=== PATIENT | female | born 1975 | race Caucasian/White ===

== ENCOUNTER 2019-04-29 16:54 | Emergency (ER) | payer BC ==
[~2019-04-29] VITALS: Ht 147.3 cm; Wt 59.0 kg
[2019-04-29 16:57] VITALS: BP_SYST 140
--- NOTE | 2019-04-29 17:05 | NUR ---
Patient to ER bed 8 to gown for evaluation. Side rails up. Report given to ROMIE Hanks.
--- NOTE | 2019-04-29 17:07 | NUR ---
Patient brought in by self complaining of intermittent posterior headache last 6-7 hours with nausea. Reports did not sleep last night and under a lot of stress. Also complaining of numbness and tingling to fingertips. History of anxiety and depression. Denies vomiting, diarrhea, or fevers. Pain 4/10. No other complaints/injuries per patient or as noted. Will continue to monitor.
--- NOTE | 2019-04-29 17:10 | NUR ---
ER PA Andersen at bedside examining patient.
[2019-04-29] MEDS ORDERED: KETOROLAC TROMETHAMINE 15 MG VIAL IVP ONE (17:30)
[2019-04-29] MEDS ORDERED: ONDANSETRON HCL 4 MG/2 ML VIAL IVP ONE (17:30)
[2019-04-29] MEDS ORDERED: METOCLOPRAMIDE HCL 10 MG/2 ML VIAL IVP ONE (17:30)
[2019-04-29] MEDS ORDERED: DIPHENHYDRAMINE INJ 50 MG/ML VIAL IVP ONE (17:30)
[2019-04-29] MEDS ORDERED: NACL 0.9% 1,000 ML IV ONE (17:45)
[2019-04-29 18:41] VITALS: BP_SYST 118
--- NOTE | 2019-04-29 18:41 | NUR ---
Patient given written and verbal discharge instructions and verbalizes understanding. ER MD discussed with patient the results and treatment provided. Patient in stable condition. ID arm band removed. IV catheter removed intact and dressing applied, no active bleeding. Rx of Reglan, Ibuprofen, Sumatriptan given. Patient educated on pain management and to follow up with PMD. Pain Scale 0/10 Opportunity for questions provided and answered. Medication side effect fact sheet provided.
== END 2019-04-29 18:41 | disposition home or self-care (01) ==
LOC: SED 16:54
DX: R51 Headache (principal); R03.0 Elevated blood-pressure reading, without diagnosis of hypertension; F32.9 Major depressive disorder, single episode, unspecified; F41.9 Anxiety disorder, unspecified; F12.90 Cannabis use, unspecified, uncomplicated
CPT/HCPCS: 82962; 96374; 96375; 99284; J1200; J1885; J2765; J7030

== ENCOUNTER 2021-08-26 07:08 | Emergency (ER) | payer BC ==
[~2021-08-26] VITALS: Ht 149.9 cm; Wt 56.7 kg
[2021-08-26 07:12] VITALS: BP_SYST 134
--- NOTE | 2021-08-26 07:13 | NUR ---
Patient to ER bed 1 to gown for evaluation. Side rails up. Report given to MARITZA GRUBBS.
--- NOTE | 2021-08-26 07:30 | NUR ---
ER Dr. Santos at bedside examining patient.
--- NOTE | 2021-08-26 07:34 | NUR ---
CXR being done at bedside.
--- NOTE | 2021-08-26 07:36 | NUR ---
Pt here from home reporting L sided chest pressure 5/10, radiating to scapula area. Denies cardiac hx. No SOB noted upon face to face assessment. Minimal PMH besides psychiatric dx reported. VSS on inventory control clerk. Pending labs/imaging.
--- NOTE | 2021-08-26 07:51 | NUR ---
# 20 gauge angiocath placed to right wrist. Use of asceptic technique. Opsite placed over site. Blood return noted. Blood for lab drawn from site. Flushed with 10 cc of normal saline. No evidence of infiltration noted. Patient tolerated well.
[2021-08-26 07:59] LABS: BASOPHILS % (AUTO) 0.4 % (0.0-2.0); EOSINOPHILS # (AUTO) 0.2 K/uL (0.0-0.4); EOSINOPHILS % (AUTO) 2.9 % (0.0-4.0); HEMATOCRIT 34.9 % (36-48); HEMOGLOBIN 11.9 g/dL (12.0-16.0); LYMPHOCYTES # (AUTO) 1.4 K/uL (1.0-5.5); LYMPHOCYTES % (AUTO) 23.5 % (20.5-51.5); MEAN CORPUSCULAR HEMOGLOBIN 30 pg (27-31); MEAN CORPUSCULAR HGB CONC 34 % (32-36); MEAN CORPUSCULAR VOLUME 88 fL (79.0-98.0); MONOCYTES # (AUTO) 0.4 K/uL (0.0-1.0); MONOCYTES % (AUTO) 6.9 % (1.7-9.3); NEUTROPHILS # (AUTO) 3.9 K/uL (1.8-7.7); NEUTROPHILS % (AUTO) 66.3 % (40.0-70.0); PLATELET COUNT (AUTO) 213 K/uL (130-430); RED BLOOD CELL COUNT(AUTO) 3.95 MIL/uL (4.2-6.2); WHITE BLOOD COUNT (AUTO) 5.9 K/uL (4.8-10.8)
[2021-08-26] MEDS ORDERED: ONDANSETRON HCL 4 MG/2 ML VIAL IVP ONE (08:00)
[2021-08-26] MEDS ORDERED: KETOROLAC TROMETHAMINE 30 MG VIAL IVP ONE (08:00)
[2021-08-26 08:16] LABS: ANION GAP 9 (5-15); CALCIUM 8.1 mg/dL (8.4-11.0); CHLORIDE 104 mmol/L (98-107); CREATININE 0.67 mg/dL (0.55-1.30); GLUCOSE 99 mg/dL (70-99); POTASSIUM 3.8 mmol/L (3.5-5.1); SODIUM SERUM 138 mmol/L (136-145); UREA NITROGEN, BLOOD 10 mg/dL (8-21)
[2021-08-26 08:24] LABS: ALANINE AMINOTRANSFERASE 22 U/L (12-78); ALBUMIN 3.6 g/dL (3.4-4.8); ASPARTATE AMINOTRANSFERASE 20 U/L (10-37); TOTAL BILIRUBIN 0.3 mg/dL (0.0-1.0)
[2021-08-26 08:30] LABS: GFR AFRICAN AMERICAN 121 mL/min (>90)
[2021-08-26] MEDS ORDERED: MORPHINE 4 MG INJ. 4 MG/ML VIAL IM ONE (09:45)
[2021-08-26] MEDS ORDERED: OXYCODONE/ACETAMINOPHEN 5-325 TABLET PO ONE (09:45)
[2021-08-26] MEDS ORDERED: ACET325C5 PO (10:08)
[2021-08-26 10:33] VITALS: BP_SYST 134
--- NOTE | 2021-08-26 10:39 | NUR ---
Patient given written and verbal discharge instructions and verbalizes understanding. ER MD discussed with patient the results and treatment provided. Patient in stable condition. ID arm band removed. IV catheter removed intact and dressing applied, no active bleeding. Patient educated on pain management and to follow up with PMD. Pain Scale 2/10. Opportunity for questions provided and answered. Pt AOx4, GCS 15. NAD noted at this time.
== END 2021-08-26 10:39 | disposition home or self-care (01) ==
LOC: SED 07:08
DX: R07.89 Other chest pain (principal); D64.9 Anemia, unspecified; F32.9 Major depressive disorder, single episode, unspecified; F41.9 Anxiety disorder, unspecified; F17.290 Nicotine dependence, other tobacco product, uncomplicated; Z88.8 Allergy status to other drugs, medicaments and biological substances; Z79.899 Other long term (current) drug therapy; Z71.6 Tobacco abuse counseling
CPT/HCPCS: 36415; 71045; 80053; 81025; 82550; 83880; 84484; 85025; 93005; 96374; 96375; 99285; J1885; J2405